=== PATIENT | male | born 1945 | race Caucasian/White ===

== ENCOUNTER 2022-03-30 04:09 | Emergency (ER) | payer BC ==
[~2022-03-30] VITALS: Ht 180.3 cm; Wt 69.0 kg
== END 2022-03-30 06:45 | disposition home or self-care (01) ==
LOC: ER 04:09
DX: S20.212A Contusion of left front wall of thorax, initial encounter (principal); W18.39XA Other fall on same level, initial encounter; W22.03XA Walked into furniture, initial encounter; Z95.1 Presence of aortocoronary bypass graft; Z95.810 Presence of automatic (implantable) cardiac defibrillator
CPT/HCPCS: 71100; A9270; J1885